=== PATIENT | female | born 1960 | race Caucasian/White ===

== ENCOUNTER → 2017-02-22 | Outpatient (CLI) | payer OTHER ==
[~2017-02-22] MED LIST: ALLERGY RELIEF10 M1 PO; AMBIEN10 M1 PO; CLARITIN10 MG PO; CYCLOBENZAPRINE10 MG PO; DEXTROAMPH SACC20 M1 PO; IBU800 M1 PO; LORAZEPAM1 MG PO; MOTRIN800 MG PO; NAPROXEN375 MG PO; OMEPRAZOLE40 MG PO; PRILOSEC40 MG PO; SEPTRA DS 800 M1 TAB PO; VESICARE10 MG PO; XOPENEX0.63 MG NEB; ZANTAC 300300 MG PO
== END | disposition home or self-care (01) ==
LOC: US 11:26
DX: M79.605 Pain in left leg (principal); M79.89 Other specified soft tissue disorders

== ENCOUNTER 2017-04-26 12:34 | Emergency (ER) | payer OTHER ==
[~2017-04-26] VITALS: Ht 157.4 cm; Wt 93.0 kg
[2017-04-26] MEDS ORDERED: MEDROL DOSEPAK4 MG PO (14:25)
[2017-04-26] MEDS ORDERED: ZITHROMAX250 MG PO (14:25)
[2017-04-26] MEDS ORDERED: ZYRTEC10 MG PO (14:25)
== END 2017-04-26 15:39 | disposition home or self-care (01) ==
LOC: ED 12:34
DX: J01.90 Acute sinusitis, unspecified (principal); Z79.899 Other long term (current) drug therapy

== ENCOUNTER 2017-11-01 08:41 | Emergency (ER) | payer OTHER ==
[~2017-11-01] VITALS: Wt 91.2 kg
[~2017-11-01 08:41] MED LIST changes: +MEDROL DOSEPAK4 MG PO; +ZITHROMAX250 MG PO; +ZYRTEC10 MG PO
[2017-11-01] MEDS ORDERED: LISINOPRIL20 MG PO (12:00)
== END 2017-11-01 12:12 | disposition home or self-care (01) ==
LOC: ED 08:41
DX: I10 Essential (primary) hypertension (principal); Z79.899 Other long term (current) drug therapy

== ENCOUNTER → 2020-05-29 | Outpatient (CLI) | payer OTHER ==
[~2020-05-29] MED LIST changes: +LISINOPRIL20 MG PO
== END | disposition home or self-care (01) ==
LOC: MRI 05-19 14:00
PROVIDERS: ATTEND Podiatrist
DX: M25.371 Other instability, right ankle (principal)

== ENCOUNTER → 2020-08-14 | Outpatient (CLI) | payer OTHER ==
[2020-08-14 13:44] LABS: BASO % 0.2 % (0.0-1.0); EOS % 0.1 % (1.0-4.0); LYMPH # 2.2 10*3/uL (1.3-4.4); LYMPH % 18.5 % (27.0-41.0); MEAN CELL VOLUME 90.3 fl (81.0-99.0); MEAN CORPUSCULAR HGB 29.2 pg (27.0-31.0); MEAN CORPUSCULAR HGB CONC 32.4 g/dl (33.0-37.0); MEAN PLATELET VOLUME 9.8 fl (9.6-12.3); NEUT # 8.5 10*3/uL (2.3-7.9); NEUT % 70.9 % (47.0-73.0); PLATELET COUNT AUTOMATED 206 10*3/uL (130-400); RED BLOOD COUNT 4.21 10*6/uL (4.10-5.10); RED CELL DISTRI WIDTH 14.9 % (0-14.5); RETICULOCYTE % 1.66 % (0.50-2.50)
[2020-08-14 14:10] LABS: IRON 75 ug/dL (50-170); TOTAL IRON BINDING CAPACITY 484 ug/dl (250-450)
== END | disposition home or self-care (01) ==
LOC: LAB 13:16
PROVIDERS: ATTEND Nurse Practitioner
DX: D64.9 Anemia, unspecified (principal)

== ENCOUNTER → 2021-05-07 | Outpatient (CLI) | payer OTHER | END | disposition home or self-care (01) | LOC: COVID19 16:38 | PROVIDERS: ATTEND Internal Medicine | DX: Z11.52 Encounter for screening for COVID-19 (principal) ==

== ENCOUNTER → 2022-05-06 | Outpatient (CLI) | payer OTHER | END | disposition home or self-care (01) | LOC: RAD 12:11 | PROVIDERS: ATTEND Nurse Practitioner | DX: J44.1 Chronic obstructive pulmonary disease with (acute) exacerbation (principal); R05.9 Cough, unspecified ==

== ENCOUNTER 2023-10-11 12:00 | Emergency (ER) | payer OTHER ==
[~2023-10-11] VITALS: Ht 157.4 cm; Wt 72.6 kg
[2023-10-11] MEDS ORDERED: MORPHINE Sulfate 2 MG/ML SYR IV ONE (13:30)
[2023-10-11] MEDS ORDERED: Ondansetron Hydrochloride 4 MG/2 ML VIAL IV ONE (13:35)
[2023-10-11 13:51] LABS: BASO % 0.4 % (0.0-1.0); EOS # 0.1 10*3/uL (0.0-0.4); EOS % 1.3 % (1.0-4.0); HEMATOCRIT 39.8 % (37.0-47.0); LYMPH # 1.4 10*3/uL (1.3-4.4); LYMPH % 20.3 % (27.0-41.0); MEAN CELL VOLUME 95.9 fl (81.0-99.0); MEAN CORPUSCULAR HGB 31.3 pg (27.0-31.0); MEAN CORPUSCULAR HGB CONC 32.7 g/dl (33.0-37.0); MEAN PLATELET VOLUME 9.6 fl (9.6-12.3); MONO # 0.6 10*3/uL (0.1-1.0); MONO % 8.8 % (3.0-9.0); NEUT # 4.8 10*3/uL (2.3-7.9); NEUT % 67.6 % (47.0-73.0); PLATELET COUNT AUTOMATED 180 10*3/uL (130-400); RED BLOOD COUNT 4.15 10*6/uL (4.10-5.10); RED CELL DISTRI WIDTH 13.2 % (0-14.5); WHITE BLOOD COUNT 7.1 10*3/uL (4.8-10.8)
[2023-10-11 14:09] LABS: ALKALINE PHOSPHATASE 58 U/L (46-116); BUN 18 mg/dl (9-23); CHLORIDE 104 mmol/L (98-107); LIPASE 51 U/L (12-53); POTASSIUM 3.9 mmol/L (3.4-5.1); TOTAL PROTEIN 7.2 gm/dL (6.0-8.0)
[2023-10-11 14:13] LABS: SGPT/ALT < 7 U/L (5-49)
[2023-10-11] MEDS ORDERED: IOHEXOL 300 MG/ML 100 ML VIAL IV ONE (14:20)
[2023-10-11 14:26] LABS: BILIRUBIN Negative (Negative); BLOOD Negative (Negative); CLARITY Clear (Clear); COLOR Yellow (Yellow); GLUCOSE Negative (Negative); KETONE Trace (Negative); LEUKO ESTERASE Trace (Negative); NITRITE Negative (Negative); PH 5.5 (4.5-8.0); SPECIFIC GRAVITY >= 1.030 (1.001-1.030); UROBILINOGEN 0.2 E.U./dl (0.0-1.0)
[2023-10-11] MEDS ORDERED: IOHEXOL 300 MG/ML 100 ML VIAL ONE (14:27)
[2023-10-11 14:40] LABS: BACTERIA 1+; EPITHELIAL CELLS 16-20; RBC 0-2 rbc/hpf (0-2)
[2023-10-11] MEDS ORDERED: VIBRAMYCIN100 MG PO (16:08)
== END 2023-10-11 16:15 | disposition home or self-care (01) ==
LOC: ED 12:00
PROVIDERS: Nurse Practitioner
DX: N39.0 Urinary tract infection, site not specified (principal); N28.1 Cyst of kidney, acquired; K21.9 Gastro-esophageal reflux disease without esophagitis; F41.9 Anxiety disorder, unspecified; Z98.890 Other specified postprocedural states

== ENCOUNTER → 2023-10-19 | Outpatient (CLI) | payer OTHER ==
[~2023-10-19] MED LIST changes: +VIBRAMYCIN100 MG PO
== END | disposition home or self-care (01) ==
LOC: RAD 16:54
PROVIDERS: ATTEND Nurse Practitioner
DX: R07.89 Other chest pain (principal); M79.18 Myalgia, other site

== ENCOUNTER → 2024-07-04 | Outpatient (CLI) | payer OTHER | END | disposition home or self-care (01) | LOC: RAD 04:11 | PROVIDERS: ATTEND Nurse Practitioner | DX: M51.369 Other intervertebral disc degeneration, lumbar region without mention of lumbar back pain or lower extremity pain (principal); M47.816 Spondylosis without myelopathy or radiculopathy, lumbar region; M43.8X9 Other specified deforming dorsopathies, site unspecified; G95.89 Other specified diseases of spinal cord ==

== ENCOUNTER → 2024-09-28 | Outpatient (CLI) | payer OTHER | END | disposition home or self-care (01) | LOC: MRI 03:15 | PROVIDERS: ATTEND Nurse Practitioner | DX: M47.816 Spondylosis without myelopathy or radiculopathy, lumbar region (principal); M51.34 Other intervertebral disc degeneration, thoracic region; R60.0 Localized edema; M48.07 Spinal stenosis, lumbosacral region; M51.379 Other intervertebral disc degeneration, lumbosacral region without mention of lumbar back pain or lower extremity pain; M47.814 Spondylosis without myelopathy or radiculopathy, thoracic region ==